=== PATIENT | male | born 1965 | race Caucasian/White ===

== ENCOUNTER 2018-10-27 11:35 | Emergency (ER) | payer OTHER ==
[2018-10-27 13:29] VITALS: BP 138/61
--- NOTE | 2018-10-27 13:41 | UC ---
Respiratory Complaint HPI - HPI Summary HPI Summary: Pt presents with c/o cough, chest congestion, nasal congestion, fever, chills, wheezing X 3-4 days. has known exposure to pneumonia. - History of Current Complaint Chief Complaint: UCRespiratory Stated Complaint: BACK ACHE,COUGH,CONGESTION Time Seen by Provider: 10/27/18 13:36 Hx Obtained From: Patient Onset/Duration: Gradual Onset, Lasting Days, Still Present, Worse Since - onset Severity Initially: Mild Severity Currently: Moderate Pain Intensity: 2 Character: Cough: Productive Aggravating Factors: Exertion, Deep Breaths, Recumbent Position Alleviating Factors: Nothing Associated Signs And Symptoms: Positive: Wheezing, URI, Nasal Congestion - Risk Factors Pulmonary Embolism Risk Factors: Negative Cardiac Risk Factors: Negative Pseudomonas Risk Factors: Negative Tuberculosis Risk Factors: Negative - Allergies/Home Medications Allergies/Adverse Reactions: Allergies Allergy/AdvReac Type Severity Reaction Status Date / Time bee sting Allergy local Uncoded 10/27/18 13:30 itching and swelling Home Medications: Home Medications Bp Med 1 dose PO DAILY 10/27/18 [History Confirmed 10/27/18] Chlorpheniramine/Dextromethorp [Coricidin Hbp Cough & Cold Tab] 1 each PO BID PRN 10/27/18 [History Confirmed 10/27/18] FLUoxetine CAP* [Prozac CAP*] 10 mg PO DAILY 10/27/18 [History Confirmed ] Reynaud's Med 1 dose PO DAILY PRN 10/27/18 [History Confirmed 10/27/18] Statin 1 tab PO QAM 10/27/18 [History Confirmed 10/27/18] PMH/Surg Hx/FS Hx/Imm Hx Previously Healthy: Yes Endocrine History: Dyslipidemia Cardiovascular History: Cardiac Disease Neurological History: Other - raynauds - Surgical History Surgical History: Yes Surgery Procedure, Year, and Place: Left index finger - Family History Known Family History: Positive: Cardiac Disease - Social History Occupation: Employed Full-time Lives: With Family Alcohol Use: None Substance Use Type: None Smoking Status (MU): Never Smoked Tobacco Type: Smokeless Tobacco Amount Used/How Often: 1 can per week Have You Smoked in the Last Year: Yes - smokeless Review of Systems All Other Systems Reviewed And Are Negative: Yes Constitutional: Positive: Fever, Chills Skin: Positive: Negative Eyes: Positive: Negative ENT: Positive: Nasal Discharge, Sinus Congestion Respiratory: Positive: Cough Cardiovascular: Positive: Negative Gastrointestinal: Positive: Negative Genitourinary: Positive: Negative Motor: Positive: Negative Neurovascular: Positive: Negative Musculoskeletal: Positive: Negative Neurological: Positive: Negative Psychological: Positive: Negative Is Patient Immunocompromised?: No Physical Exam Triage Information Reviewed: Yes Appearance: Ill-Appearing Vital Signs: Initial Vital Signs Temp 98 F 10/27/18 13:19 Pulse 86 10/27/18 13:19 Resp 20 10/27/18 13:19 BP 138/61 10/27/18 13:19 Pulse Ox 98 10/27/18 13:19 Vital Signs Reviewed: Yes Eye Exam: Normal ENT Exam: Other ENT: Positive: Pharyngeal erythema, Nasal congestion, Tonsillar swelling, Tonsillar exudate Dental Exam: Normal Neck exam: Normal Respiratory: Positive: Wheezing Cardiovascular Exam: Normal Musculoskeletal Exam: Normal Neurological Exam: Normal Psychological Exam: Normal Skin Exam: Normal Respiratory Course/Dx - Differential Dx/Diagnosis Differential Diagnosis/HQI/PQRI: Bronchitis Provider Diagnosis: Tonsillitis, Bronchitis Discharge - Sign-Out/Discharge Documenting (check all that apply): Patient Departure All imaging exams completed and their final reports reviewed: No Studies - Discharge Plan Condition: Stable Disposition: HOME Prescriptions: Albuterol HFA INHALER* [Ventolin HFA Inhaler*] 1 - 2 puff INH Q6H PRN #1 mdi PRN Reason: Sob/Wheezing Amoxicillin PO (*) [Amoxicillin 500 MG CAP*] 500 mg PO Q12H #20 cap predniSONE TAB* [Deltasone 20 MG TAB*] 20 mg PO DAILY #4 tab Patient Education Materials: Acute Bronchitis (ED), Tonsillitis (ED) Referrals: Kenyetta Ohara MD [Primary Care Provider] - If Needed - Billing Disposition and Condition Condition: STABLE Disposition: Home - Attestation Statements Provider Attestation: I was available for consult. This patient was seen by the FERMIN. The patient was not presented to, seen by, or examined by me. EK
== END 2018-10-27 13:54 | disposition home or self-care (01) ==
LOC: UCCORT 11:35
DX: J40 Bronchitis, not specified as acute or chronic (principal); J03.90 Acute tonsillitis, unspecified; R09.81 Nasal congestion; I73.00 Raynaud's syndrome without gangrene; E78.5 Hyperlipidemia, unspecified; Z91.030 Bee allergy status; Z20.818 Contact with and (suspected) exposure to other bacterial communicable diseases; Z79.899 Other long term (current) drug therapy
CPT/HCPCS: 99212; G0463